=== PATIENT | female | born 1990 | race African-American/Black ===

== ENCOUNTER 2019-08-14 13:07 | Inpatient (IN) | payer OTHER ==
--- NOTE | 2019-08-14 13:38 | PDOC ---
Rapid Medical Evaluation Time Seen by Provider: 08/14/19 13:28 Medical Evaluation: 08/14/19 13:29 CC: AMS per family PE: RUE/RLE weakness. Unable to finish sentences ?aphasia. Fried Cake Maker strength 11/18 bl. CAMRONN- 08/13/19 @ 11am Orders: CVA w/u Patient will proceed to the ED for further evaluation. 08/14/19 13:38 Discharge Disposition - Diagnosis AMS (altered mental status) - Referrals - Patient Instructions - Post Discharge Activity
[2019-08-14 14:49] LABS: BASO % 0.4 % (0-2.0); EOS % 0.8 % (0-4.5); HEMATOCRIT 41.9 % (32.4-45.2); HEMOGLOBIN 13.9 GM/dL (10.7-15.3); LYMPH % 18.7 % (8-40); MCH 30.8 pg (25.7-33.7); MCHC 33.3 g/dl (32.0-36.0); MEAN CELL VOLUME 92.6 fl (80-96); MEAN PLT VOLUME 9.9 fl (7.5-11.1); MONO % 4.8 % (3.8-10.2); NEUT % 75.3 % (42.8-82.8); PLATELET COUNT 347 K/MM3 (134-434); RBC 4.52 M/mm3 (3.60-5.2); RDW 13.2 % (11.6-15.6); WHITE BLOOD COUNT 6.8 K/mm3 (4.0-10.0)
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
[2019-08-14 15:47] LABS: COCAINE, UR NEGATIVE ng/ml (CUTOFF=300); METHADONE, UR NEGATIVE ng/ml (CUTOFF=300); OPIATES, URI NEGATIVE ng/ml (CUTOFF=300); PHENCYCLIDINE,URINE NEGATIVE ng/ml (CUTOFF=25); URINE AMPHETAMINES NEGATIVE ng/ml (CUTOFF=500); URINE BARBITURATES NEGATIVE ng/ml (CUTOFF=200); URINE BENZODIAZEPINES NEGATIVE ng/ml (CUTOFF=200)
[2019-08-14 15:53] LABS: EPI CELLS 5.2 /HPF (0-5/HPF); HYALINE CASTS 15 /lpf (0-8); PH,URINE 5.5 (5.0-8.0); URINE APPEARANCE CLEAR; URINE BACTERIA 338.3 /hpf (NEGATIVE); URINE BILIRUBIN NEGATIVE (NEGATIVE); URINE COLOR YELLOW; URINE GLUCOSE (UA) NEGATIVE (NEGATIVE); URINE KETONE 4+ (NEGATIVE); URINE LEUK ESTERASE TRACE (NEGATIVE); URINE NITRITE NEGATIVE (NEGATIVE); URINE PROTEIN TRACE (NEGATIVE); URINE WBC 12 /hpf (0-5)
[2019-08-14] MEDS ORDERED: SODIUM CHLORIDE 0.9% 500 ML INFUS.BAG IV ONE (16:14)
--- NOTE | 2019-08-14 17:18 | PDOC ---
Documentation entered by Yessenia Hernández SCRIBE, acting as scribe for Rosenda France MD. Rosenda France MD: This documentation has been prepared by the Edgar lora Nirvannie, SCRIBE, under my direction and personally reviewed by me in its entirety. I confirm that the documentation accurately reflects all work, treatment, procedures, and medical decision making performed by me. Attending Attestation - Resident Resident Name: Nazia Cedeno - ED Attending Attestation I have performed the following: I have examined & evaluated the patient, The case was reviewed & discussed with the resident, I agree w/resident's findings & plan, Exceptions are as noted - HPI HPI: 08/14/19 16:37 HPI The patient is a 29YOF with no significant past medical history presenting with aphasia. While in the ED, patient can only communicate with a few words without the ability to communicate in full sentences. Her last known well was 11:30PM ( communicated with sister at that time). At approximately 9:50AM this morning she called her sister at which time she was unable to speak and word finding difficulties, repetitive. baseline normal, now repetitive and aphasic, difficulty communicating Allergies: None Past Medical History/PSH: None reported Social history: Lives with family. No tobacco, ETOH or drug use. Meds: none PMD: Dr. Carney 08/14/19 17:17 - Physicial Exam PE: 08/14/19 17:14 Agree with the resident's HPI and PE as documented in the electronic medical record. NAD, well appearing, EOMI, PERRL, nl conjunctiva, anicteric; neck supple. lungs clear, RRR, abdomen soft nontender. no rebound, guarding. No peripheral edema. normal color for ethnicity, WWP. Alert, aphasic, repetitive with "no." CN II-XII grossly intact. Strength prox and distally 5/5 throughout. no pronator drift b/l. Sensation grossly intact to light touch. LAMB x4. aphasic, repetitive - Critical Care Time Total Critical Care Time: 40 (CVA) Critical Care Statement: The care of this patient involved high complexity decision making to prevent further life threatening deterioration of the patient 's condition and/or to evaluate & treat vital organ system(s) failure or risk of failure. - Medical Decision Making 08/14/19 17:15 Vital Signs Temp Pulse Resp BP Pulse Ox 98.1 F 87 18 131/89 100 08/14/19 13:30 08/14/19 13:30 08/14/19 13:30 08/14/19 13:30 08/14/19 13:30 08/14/19 17:16 VS reviewed, wnl. Differential diagnosis includes CVA, aneurysm, dissection, intracranial bleed, anemia, electrolyte derangements, arrhythmia Patient is not a TPA candidate, last normal is 11 PM last night. out of tpa window. CT head preliminarily with focal low-attenuation density which could be encephalomalacia versus right occipital lobe infarction, rapid MRI sequence will be indicated. Neurology consultation with Dr. Mixon, will come to evaluate. admission to stroke tele, MRI, NPO, medical management 08/14/19 17:17 08/16/19 07:36 Heart Score/ECG Review #1 ECG reviewed & interpreted by me at: 17:55 General ECG Interpretation: Sinus Rhythm, Normal Rate, Normal Intervals Compared to previous ECG there are: Previous ECG unavail 08/14/19 18:17 EKG normal sinus rhythm 77 bpm, no interval abnormalities, narrow QRS, ST and T wave segments and morphology normal. Nonspecific T wave abnormalities inferior leads III/aVF
[2019-08-14 17:43] LABS: ALBUMIN 3.3 g/dl (3.4-5.0); BILIRUBIN,TOTAL 0.5 mg/dL (0.2-1); BLOOD UREA NITROGEN 7.3 mg/dL (7-18); CALCIUM 8.9 mg/dL (8.5-10.1); CREATININE 0.7 mg/dL (0.55-1.3); POTASSIUM 4.1 mmol/L (3.5-5.1); TOT PROT 7.1 g/dl (6.4-8.2)
[2019-08-14 18:19] LABS: URINE RBC 7.4 /hpf (0-4)
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
[2019-08-14] MEDS ORDERED: SODIUM CHLORIDE 1,000 ML IV SCH (19:00)
--- NOTE | 2019-08-14 19:01 | PN.NIHSS ---
NIH Stroke Scale - Last Known Well Date/Time & Onset Date Last Known Well: 08/13/19 - Initial Evaluation Level of consciousness: Alert Ask patient the month and their age: Both incorrect Ask patient to open & close eyes; make fist and let go: Obeys both correctly Best gaze (horizontal eye movement): Normal Visual field testing: No visual field loss Facial paresis (Show teeth/raise eyebrows/close eyes tight): Normal symmetrical movement Motor Function: Left Arm: Normal Motor Function: Right Arm: Normal (extends arm 90 (or 45) degrees for 10 seconds without drift Motor Function: Left Leg: Normal (extends leg 30 degrees for 5 seconds without drift) Motor Function: Right Leg: Normal (extends leg 30 degrees for 5 seconds without drift) Limb Ataxia: No ataxia Sensory(Use pinprick test arms,legs,trunk,face/side to side): Mild to moderate decrease in sensation (Forehead BL questoinable decrease in sensation; expressive aphasia) Best language (Describe picture, name items, read sentences): Severe aphasia Dysarthria (read several words): Near unintelligible or unable to speak Extinction and Inattention: No abnormality - Total Score NIH Stroke Scale Score: 7
--- NOTE | 2019-08-14 19:12 | PN ---
Teaching Attending Note Name of Resident: Adam Augustin ATTENDING PHYSICIAN STATEMENT I saw and evaluated the patient. I reviewed the resident's note and discussed the case with the resident. I agree with the resident's findings and plan as documented. SUBJECTIVE:29 y/o female PMH of POWERS/migraines (not formally diagnosed) since age 14 c/o inability to speak since AM today 14 Aug 2019. Sister (Stanford ) and mother (Julia [phone]) at bedside assisting in hx. Sincere reports that this morning her sister called her saying, "Sincere" and ,"I can't. " Prior to this there were several missed texts between sisters whom text each other daily. A friend FaceTimed the pt and verified expressive aphasia. Mother and sister arrived at pt's apartment in [place] (lives alone at the [place]). She at first ignored the door and on second attempt, she opened the door to family but was under sheets in bedroom naked. There was no evidence of robbery, break in, or assault. Pt was brought in by family. This has never happened before. 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 She has never used recreational drugs, etoh, or smoked. Sister notes decreased PO intake over last 2 days; no inciting reason such as weight loss. Her sleep status is unknown. There have been no recent known life stressors. No new foods/ supplements/herbs. Have seen PCP in last year. * OBJECTIVE O/E is comfortable , appears distant, and sad, sometimes tearful, alert , awake, sometimes answers, nad, * vss * neck supple, no jvd * cvs s1/s2/0 * chest ctab * abd benign * ext no c/c/e * neuro non focal * except not speaking, sometimes says yes or no, and responds to verbal commands, and follows all the directions, ASSESSMENT AND PLAN: ASSESSMENT/PLAN: 29 y/o female with PMH POWERS/migraines c/o asphasia for today # CVA vs migraine vs complex seizure - Possibly old CVA given CT / artifacts, - MRI - Carotid doppler - ECHO - ASA, statin - Lipid panel - TSH - HbA1c will get the speech evaluation, monitor, # DVT prophylaxis - Lovenox SQ #
--- NOTE | 2019-08-14 20:40 | CONSULT ---
Consult - text type - Consultation Consultation Note: NEUROLOGY CONSULTATION is greatly appreciated: Events reviewed and discussed with ER staff. Patient examined woth her mother and daughter at the bedside who provide history. 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 PMH of "Migraine" headaches occuring approx 1/month. On long lasing BCP's to "avoid having periods." Never smokes. Sister had a "normal conversation" with her yesterday morning. Pt called her sister around 9 AM and "didn't make sense." They arrived at her apt. to find her naked, blankets pulled up to her chin and frightened. They drove her to the ED. Her gait was "slow." Over the course of the day nurses describe her a variably alert and lethargic, speaking and mute. CT of head (reviewed): Normal study MRI of brain (reviewed): Normal study CBC, CMP, Tox screen: normal or negative. KEON: Neck supple. No head trauma. Cor Reg NEURO: Awake, alert. Follows complex 3-4 step commands quickly but simple commands, variably. Sparse, fluent speech alternates with Hesitant, labored speech. Tearful, sad but laughs at my jokes. CN XII-XII: Normal. Full oreilly. Normal tongue MACK's Motor: No drift or tremor. Normal strength, bulk, tone and reflexes. Toes downgoing Coord: No FTN dystaxia Sensory: Normal IMP: Probably normal neurological exam. The speech changes are most likely non-physiological and are not suggestive of stroke. Severe depression Suggest: Advance activities. Gentle encouragement. Halter/telemetry, echo, cardiology consultation Psychiatry consultation Can be discharged "when able to express her needs." Neuro and psyche f/u as out patient. Thank you very much, Lauri Mixon MD
[2019-08-14] MEDS ORDERED: ATORVASTATIN CA 80 MG TABLET (FP) ONE (21:05)
[2019-08-14] MEDS ORDERED: ASPIRIN 325 MG ENTERIC COATED TABLET (FP) ONE (21:05)
[2019-08-14] MEDS: ATORVASTATIN CA 80 MG TABLET (FP) PO SCH ×2 (21:18→22:11)
[2019-08-14] MEDS: ASPIRIN 325 MG ENTERIC COATED TABLET (FP) PO SCH (21:18)
[2019-08-14] MEDS: DEXTROSE 5%-0.45% SALINE 1,000 ML IV SCH (21:48)
[2019-08-14 23:54] LABS: INR 1.03 (0.83-1.09); PROTHROMBIN TIME (PATIENT) 12.2 SEC (9.7-13.0)
[2019-08-14 23:57] LABS: ACTIVATED PTT 26.8 SECONDS (25.2-36.5)
[2019-08-15 07:11] LABS: BASO % 0.5 % (0-2.0); EOS % 2.3 % (0-4.5); HEMATOCRIT 35.5 % (32.4-45.2); HEMOGLOBIN 11.8 GM/dL (10.7-15.3); LYMPH % 35.7 % (8-40); MCH 30.5 pg (25.7-33.7); MCHC 33.2 g/dl (32.0-36.0); MEAN CELL VOLUME 91.8 fl (80-96); MEAN PLT VOLUME 9.9 fl (7.5-11.1); MONO % 9.3 % (3.8-10.2); NEUT % 52.2 % (42.8-82.8); PLATELET COUNT 266 K/MM3 (134-434); RBC 3.87 M/mm3 (3.60-5.2); RDW 13.1 % (11.6-15.6); WHITE BLOOD COUNT 5.9 K/mm3 (4.0-10.0)
[2019-08-15 07:52] LABS: ALBUMIN 2.9 g/dl (3.4-5.0); BILIRUBIN,TOTAL 0.6 mg/dL (0.2-1); BLOOD UREA NITROGEN 6.8 mg/dL (7-18); CALCIUM 8.1 mg/dL (8.5-10.1); CREATININE 0.7 mg/dL (0.55-1.3); PHOSPHOROUS 3.1 mg/dL (2.5-4.9); POTASSIUM 3.7 mmol/L (3.5-5.1); TOT PROT 6.2 g/dl (6.4-8.2)
--- NOTE | 2019-08-15 09:00 | PN ---
Teaching Attending Note Name of Resident: Adam Augustin ATTENDING PHYSICIAN STATEMENT I saw and evaluated the patient. I reviewed the resident's note and discussed the case with the resident. I agree with the resident's findings and plan as documented. SUBJECTIVE: Patient is a 29 y/o female with PMHx of POWERS/migraines (not formally diagnosed) since age 14 c/o inability to speak since the morning of 14 Aug 2019. Sister ( Stanford [phone]) and mother (Julia [phone]) at bedside today. Sincere reported that this morning her sister called her saying, "Sincere" and , "I can't." Prior to this there were several missed texts between sisters whom text each other daily. A friend FaceTimed the pt and verified expressive aphasia. Mother and sister arrived at pt's apartment in [place] (lives alone at the [place]). She at first ignored the door and on second attempt opened the door as per family. This has never happened before. 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 She has never used recreational drugs, etoh, or smoked. Sister notes decreased PO intake over last 2 days. Vital Signs Temperature 99.2 F 08/15/19 05:00 Pulse Rate 75 08/15/19 05:00 Respiratory Rate 18 08/15/19 05:00 Blood Pressure 127/67 08/15/19 05:00 O2 Sat by Pulse Oximetry (%) 98 08/15/19 01:20 GENERAL: The patient is awake, alert, in no acute distress. HEAD: Normal with no signs of trauma. EYES: PERRL, extraocular movements intact, sclera anicteric, conjunctiva clear. ENT: Ears normal, oropharynx clear without exudates, moist mucous membranes. NECK: Trachea midline, full range of motion, supple. LUNGS: Breath sounds equal, clear to auscultation bilaterally, no wheezes, no crackles, no accessory muscle use. HEART: Regular rate and rhythm, S1, S2 without murmur, rub or gallop. ABDOMEN: Soft, nontender, nondistended, normoactive bowel sounds, no guarding, no rebound, no hepatosplenomegaly, no masses. EXTREMITIES: 2+ pulses, warm, well-perfused, no edema. NEUROLOGICAL: Cranial nerves II through XII grossly intact. gait not observed. Aphasic "uh huhh" to most questions. Agraphia to full sentences. Babinski NEG. Patellar reflexes 2+ BL, Bracihal reflex 2+ BL. PSYCH: appears sad, alert , awake, sometimes answers SKIN: Warm, dry, normal turgor, no rashes or lesions noted CBCD WBC 5.9 K/mm3 (4.0-10.0) 08/15/19 05:35 RBC 3.87 M/mm3 (3.60-5.2) 08/15/19 05:35 Hgb 11.8 GM/dL (10.7-15.3) 08/15/19 05:35 Hct 35.5 % (32.4-45.2) D 08/15/19 05:35 MCV 91.8 fl (80-96) 08/15/19 05:35 MCHC 33.2 g/dl (32.0-36.0) 08/15/19 05:35 RDW 13.1 % (11.6-15.6) 08/15/19 05:35 Plt Count 266 K/MM3 (134-434) D 08/15/19 05:35 MPV 9.9 fl (7.5-11.1) 08/15/19 05:35 CMP Sodium 141 mmol/L (136-145) 08/15/19 05:35 Potassium 3.7 mmol/L (3.5-5.1) 08/15/19 05:35 Chloride 108 mmol/L (98-107) H 08/15/19 05:35 Carbon Dioxide 25 mmol/L (21-32) 08/15/19 05:35 Anion Gap 9 MMOL/L (8-16) 08/15/19 05:35 BUN 6.8 mg/dL (7-18) L 08/15/19 05:35 Creatinine 0.7 mg/dL (0.55-1.3) 08/15/19 05:35 Random Glucose 83 mg/dL (74-106) 08/15/19 05:35 Calcium 8.1 mg/dL (8.5-10.1) L 08/15/19 05:35 Total Bilirubin 0.6 mg/dL (0.2-1) 08/15/19 05:35 AST 16 U/L (15-37) 08/15/19 05:35 ALT 10 U/L (13-61) L 08/15/19 05:35 Alkaline Phosphatase 37 U/L (45-117) L 08/15/19 05:35 Total Protein 6.2 g/dl (6.4-8.2) L 08/15/19 05:35 Albumin 2.9 g/dl (3.4-5.0) L 08/15/19 05:35 Current Medications Generic Name Dose Route Start Last Admin Trade Name Fani PRN Reason Stop Dose Admin Aspirin 325 mg 08/14/19 19:00 08/14/19 21:18 Ecotrin - PO 325 mg DAILY BRIA Administration Atorvastatin Calcium 80 mg 08/14/19 18:56 08/14/19 22:11 Lipitor - PO Not Given HS [facility] Enoxaparin Sodium 40 mg 08/15/19 10:00 Lovenox - SQ DAILY BRIA Dextrose/Sodium Chloride 1,000 mls @ 75 mls/hr 08/14/19 21:45 08/14/19 21:48 D5-1/2ns - IV 75 mls/hr ASDIR BRIA Administration Home Medications Medication Instructions Recorded Levonorgestrel-Ethin Estradiol 1 each PO DAILY 08/14/19 [[id number]-28 Tablet] CT of the head no contrasta; osteomalacia vs beam hardening artifact in the right occipital lobe. MRA of the brain without contrast reported: a large acute infarct involving the left temporal, frontal and parietal cortices. Acute infarct involving the left basal ganglia. A small amount of acute petechial blood is seen within the left putamen posteriorly and within the left parietal cortex. no evidence of large vessel stenosis or occlusion is identified. ASSESSMENT AND PLAN: Patient is a 29yo female with PMHx POWERS/migraines presented with asphasia on 2019, on MRA was found to have acute stroke # Acute CVA with unknown reason, echo ordered, holter monitor , on aspirin and lipitor started , lipid panel, swallowing evaluation, will get hem onc to evaluate the patient. TSH, HbA1c, follow, marivel peter speech evaluation, will continue to monitor risk factor : patient was on BCP further anticoagulation w/u per hem/onc DVT Px: lovenox
[2019-08-15] MEDS ORDERED: ENOXAPARIN NA (PORCINE) 40 MG/0.4 ML DISP.SYRIN SQ SCH (10:00)
--- NOTE | 2019-08-15 10:04 | PN ---
Progress Note (short form) - Note Progress Note: NEUROLGY PROGRESS: Events reviewed and discussed withDr. Augustin this AM. Review of the T2 Flair MRI images indeed confirms early ischemic changes in the M2 distribution of the left MCA territory affecting the Left posterior temporal and parietal regions. No edema. No confirmation of right parietal ischemia. MRA show NO evidence of MCA occlusion to suggest benefit of embolectomy. Carotid duplex is normal. In ER patient was out of the window for t-PA. Now on telemetry. Having echocardiogram now. Awaiting cardiology consultation (Arvind Romero), and hematolgy (Jackie Martin) for coagulopathy w/u EXAM: No bruits. Cor regular. In NAD (to suggest ongoing Headache), NEURO: Still tearful, frustrated. Follows rare simple commands, better with visual clues. Brief fluent phrases but, +Word substitution, gibberish phrases. Expressing herself with hand signs (ie; Telephone Mother). Full visual oreilly. No facial weakness. Gag-Normal No drift. Normal strength. Normal reflexes. Toes downgoing. Withdraws all fours and grimaces to gentle pinch all fours. IMP: Left Temporoparietal CVA with Global aphasia Most c/w Left MCA (M2) event but normal MR Angiogram. SUGGEST: Cardiology consult, Telemetry. Echocardiogram. May need JAVIER and bubble study to r/o PFO. Heme consultation for coagulopathy. Check Homocysteine, Protein C, Protein S. Anticardiolipin antibodies (circulating Lupus anticoagulant) D/C BCP's/hormone Rx ASA 325 qd SubQ heparin and SCD's for DVT prophylaxis. Mobilize OO Bed to chair. Speech therapy eval and Rx. Will call mother/sister to discuss. Thank you very much, Lauri Mixon MD
[2019-08-15 11:14] LABS: SICKLE CELL SCREEN NEGATIVE (NEGATIVE)
--- NOTE | 2019-08-15 11:29 | CONSULT ---
Consultation: CONSULT SERVICE: Hematology/Oncology Resident HISTORY OF PRESENT ILLNESS: 29yo F with h/o migraines who presented originally with expressive aphasia. During her workup CT was unequivocal, however MRI/MRA showed acute L infarct of parietal, temporal and cortical regions. We were asked to evaluate this patient due to her young age and ischemic stroke. Pt today remains with expressive aphasia, however it has slightly improved. She is able to understand commands. Pt's mother and sister are at bedside to help with history. No issues with bleeding or clotting in pt's history or family history. Only stroke was with maternal grandmother, however this was noted to be at age 80+ years. Pt conveys that she feels frustrated and is tearful during discussions. 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 REVIEW OF SYSTEMS: As per [facility] PHYSICAL EXAMINATION Vital Signs - 24 hr 08/14/19 08/14/19 08/14/19 13:30 18:45 23:27 Temperature 98.1 F 98.6 F Pulse Rate 87 Pulse Rate [ 89 84 Left Radial] Respiratory 18 19 18 Rate Blood Pressure 131/89 Blood Pressure 133/68 137/72 [Right Arm] O2 Sat by Pulse 100 99 97 Oximetry (%) 08/15/19 08/15/19 08/15/19 01:20 03:00 05:00 Temperature 98.5 F 99.2 F Pulse Rate 78 67 75 Pulse Rate [ Left Radial] Respiratory 18 18 18 Rate Blood Pressure 141/80 127/67 Blood Pressure [Right Arm] O2 Sat by Pulse 98 Oximetry (%) 08/15/19 09:00 Temperature 98.8 F Pulse Rate 68 Pulse Rate [ Left Radial] Respiratory 18 Rate Blood Pressure 134/84 Blood Pressure [Right Arm] O2 Sat by Pulse Oximetry (%) GENERAL: NAD, Awake, alert, responds to commands, able to use appropriate words at times HEENT: NC/AT, EOMI, JAMAL, sclera anicteric, MMM NECK: No JVD LUNGS: CTA bilaterally. No wheezes, and no crackles. No accessory muscle use. HEART: RRR, normal S1 and S2 without murmur ABDOMEN: Soft, nontender, not distended, normoactive bowel sounds, EXTREMITIES: 2+ distal pulses, warm, well-perfused. No calf tenderness. No peripheral edema. NEUROLOGICAL: EOMI, JAMAL, responds to commands, will have difficulty with word -finding, no dysarthria, strength grossly 5/5 b/l, sensation intact grossly PSYCHIATRIC: Cooperative. Poor eye contact. Depressed mood, tearful SKIN: Warm, dry, no rashes or lesions noted. Laboratory Results - last 24 hr 08/14/19 08/14/19 08/14/19 14:22 14:22 14:45 WBC 6.8 RBC 4.52 Hgb 13.9 Hct 41.9 MCV 92.6 MCH 30.8 MCHC 33.3 RDW 13.2 Plt Count 347 MPV 9.9 Absolute Neuts (auto) 5.1 Neutrophils % 75.3 Lymphocytes % 18.7 Monocytes % 4.8 Eosinophils % 0.8 Basophils % 0.4 Nucleated RBC % 0 Sickle Cell Screen PT with INR INR PTT (Actin FS) Sodium Cancelled Potassium Cancelled Chloride Cancelled Carbon Dioxide Cancelled Anion Gap Cancelled BUN Cancelled Creatinine Cancelled Est GFR (CKD-EPI)AfAm Cancelled Est GFR (CKD-EPI)NonAf Cancelled Random Glucose Cancelled Hemoglobin A1c % Calcium Cancelled Phosphorus Magnesium Total Bilirubin Cancelled AST Cancelled ALT Cancelled Alkaline Phosphatase Cancelled C-Reactive Protein Total Protein Cancelled Albumin Cancelled Triglycerides Cholesterol Total LDL Cholesterol HDL Cholesterol Vitamin B12 TSH Cancelled Urine Color Urine Appearance Urine pH Ur Specific [place] Urine Protein Urine Glucose (UA) Urine Ketones Urine Blood Urine Nitrite Urine Bilirubin Urine Urobilinogen Ur Leukocyte Esterase Urine WBC (Auto) Urine RBC (Auto) Urine Casts (Auto) U Epithel Cells (Auto) Urine Bacteria (Auto) Urine HCG, Qual Opiates Screen Negative Methadone Screen Negative Barbiturate Screen Negative Phencyclidine Screen Negative Ur Amphetamines Screen Negative MDMA (Ecstasy) Screen Negative Benzodiazepines Screen Negative Cocaine Screen Negative U Marijuana (THC) Screen Negative 08/14/19 08/14/19 08/14/19 14:45 14:45 16:24 WBC RBC Hgb Hct MCV MCH MCHC RDW Plt Count MPV Absolute Neuts (auto) Neutrophils % Lymphocytes % Monocytes % Eosinophils % Basophils % Nucleated RBC % Sickle Cell Screen PT with INR INR PTT (Actin FS) Sodium 140 Potassium 4.1 Chloride 106 Carbon Dioxide 26 Anion Gap 7 L BUN 7.3 Creatinine 0.7 Est GFR (CKD-EPI)AfAm 134.75 Est GFR (CKD-EPI)NonAf 116.26 Random Glucose 79 Hemoglobin A1c % Calcium 8.9 Phosphorus Magnesium Total Bilirubin 0.5 AST 16 ALT 12 L Alkaline Phosphatase 40 L C-Reactive Protein Total Protein 7.1 Albumin 3.3 L Triglycerides Cholesterol Total LDL Cholesterol HDL Cholesterol Vitamin B12 TSH Urine Color Yellow Urine Appearance Clear Urine pH 5.5 Ur Specific [place] 1.033 Urine Protein Trace Urine Glucose (UA) Negative Urine Ketones 4+ H Urine Blood Negative Urine Nitrite Negative Urine Bilirubin Negative Urine Urobilinogen 1.0 Ur Leukocyte Esterase Trace Urine WBC (Auto) 12 Urine RBC (Auto) 7.4 Urine Casts (Auto) 15 U Epithel Cells (Auto) 5.2 Urine Bacteria (Auto) 338.3 Urine HCG, Qual Negative Opiates Screen Methadone Screen Barbiturate Screen Phencyclidine Screen Ur Amphetamines Screen MDMA (Ecstasy) Screen Benzodiazepines Screen Cocaine Screen U Marijuana (THC) Screen 08/14/19 08/15/19 08/15/19 23:10 05:35 05:35 WBC RBC Hgb Hct MCV MCH MCHC RDW Plt Count MPV Absolute Neuts (auto) Neutrophils % Lymphocytes % Monocytes % Eosinophils % Basophils % Nucleated RBC % Sickle Cell Screen PT with INR 12.20 INR 1.03 PTT (Actin FS) 26.8 Sodium 141 Potassium 3.7 Chloride 108 H Carbon Dioxide 25 Anion Gap 9 BUN 6.8 L Creatinine 0.7 Est GFR (CKD-EPI)AfAm 134.75 Est GFR (CKD-EPI)NonAf 116.26 Random Glucose 83 Hemoglobin A1c % 4.6 Calcium 8.1 L Phosphorus 3.1 Magnesium 2.0 Total Bilirubin 0.6 AST 16 ALT 10 L Alkaline Phosphatase 37 L C-Reactive Protein Total Protein 6.2 L Albumin 2.9 L Triglycerides 89 Cholesterol 135 Total LDL Cholesterol 75 HDL Cholesterol 44 Vitamin B12 314 TSH 1.11 Urine Color Urine Appearance Urine pH Ur Specific [place] Urine Protein Urine Glucose (UA) Urine Ketones Urine Blood Urine Nitrite Urine Bilirubin Urine Urobilinogen Ur Leukocyte Esterase Urine WBC (Auto) Urine RBC (Auto) Urine Casts (Auto) U Epithel Cells (Auto) Urine Bacteria (Auto) Urine HCG, Qual Opiates Screen Methadone Screen Barbiturate Screen Phencyclidine Screen Ur Amphetamines Screen MDMA (Ecstasy) Screen Benzodiazepines Screen Cocaine Screen U Marijuana (THC) Screen 08/15/19 08/15/19 08/15/19 05:35 10:03 10:03 WBC 5.9 RBC 3.87 Hgb 11.8 Hct 35.5 D MCV 91.8 MCH 30.5 MCHC 33.2 RDW 13.1 Plt Count 266 D MPV 9.9 Absolute Neuts (auto) 3.1 Neutrophils % 52.2 D Lymphocytes % 35.7 D Monocytes % 9.3 D Eosinophils % 2.3 D Basophils % 0.5 Nucleated RBC % 0 Sickle Cell Screen Negative PT with INR INR PTT (Actin FS) Sodium Potassium Chloride Carbon Dioxide Anion Gap BUN Creatinine Est GFR (CKD-EPI)AfAm Est GFR (CKD-EPI)NonAf Random Glucose Hemoglobin A1c % Calcium Phosphorus Magnesium Total Bilirubin AST ALT Alkaline Phosphatase C-Reactive Protein 1.5 H Total Protein Albumin Triglycerides Cholesterol Total LDL Cholesterol HDL Cholesterol Vitamin B12 TSH Urine Color Urine Appearance Urine pH Ur Specific [place] Urine Protein Urine Glucose (UA) Urine Ketones Urine Blood Urine Nitrite Urine Bilirubin Urine Urobilinogen Ur Leukocyte Esterase Urine WBC (Auto) Urine RBC (Auto) Urine Casts (Auto) U Epithel Cells (Auto) Urine Bacteria (Auto) Urine HCG, Qual Opiates Screen Methadone Screen Barbiturate Screen Phencyclidine Screen Ur Amphetamines Screen MDMA (Ecstasy) Screen Benzodiazepines Screen Cocaine Screen U Marijuana (THC) Screen Active Medications Generic Name Dose Route Start Last Admin Trade Name Freq PRN Reason Stop Dose Admin Aspirin 325 mg 08/14/19 19:00 08/14/19 21:18 Ecotrin - PO 325 mg DAILY [facility] Administration Atorvastatin Calcium 80 mg 08/14/19 18:56 08/14/19 22:11 Lipitor - PO Not Given HS [facility] Dextrose/Sodium Chloride 1,000 mls @ 75 mls/hr 08/14/19 21:45 08/14/19 21:48 D5-1/2ns - IV 75 mls/hr ASDIR [facility] Administration ASSESSMENT/PLAN: L extensive CVA --Will send thrombophilia workup: Sickle Cell screen Hgb Electrophoresis SILVIANO RF ESR CRP --No family issues with bleeding or clotting in patient or family --Monitor for paroxysmal Afib --Agree with ASA therapy --Rest per neurology and primary teams Case discussed with Dr. Gemini Spencer, DO - IM PGY-3 Visit type - Emergency Visit Emergency Visit: Yes ED Registration Date: 08/14/19 Care time: The patient presented to the Emergency Department on the above date and was hospitalized for further evaluation of their emergent condition. - New Patient This patient is new to me today: Yes Date on this admission: 08/15/19 - Critical Care Critical Care patient: No ATTENDING PHYSICIAN STATEMENT I saw and evaluated the patient. I reviewed the resident's note and discussed the case with the resident. I agree with the resident's findings and plan as documented. SUBJECTIVE: OBJECTIVE: ASSESSMENT AND PLAN:
--- NOTE | 2019-08-15 11:35 | CONSULT ---
Admitting History and Physical - Primary Care Physician PCP: Vianney Vidales - Admission History of Present Illness: Per EMR-Patient is a 29 y/o female with PMHx of POWERS/migraines (not formally diagnosed) since age 14 c/o inability to speak since AM today 14 Aug 2019. Sister (Stanford [phone]) and mother (Julia [phone]) at bedside assisting in hx. Sincere reports that this morning her sister called her saying , "Sincere" and ,"I can't." Prior to this there were several missed texts between sisters whom text each other daily. A friend FaceTimed the pt and verified expressive aphasia. Mother and sister arrived at pt's apartment in [place] (lives alone at the [place]). She at first ignored the door and on second attempt, she opened the door to family but was under sheets in bedroom naked. There was no evidence of robbery, break in, or assault. Pt was brought in by family. This has never happened before. 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 She has never used recreational drugs, etoh, or smoked. Sister notes decreased PO intake over last 2 days; no inciting reason such as weight loss. Her sleep status is unknown. There have been no recent known life stressors. No new foods/ supplements/herbs. Have seen PCP in last year. CT of the head no contrast; osteomalacia vs beam hardening artifact in the right occipital lobe. Selected Entries 08/14/19 08/14/19 08/14/19 13:30 18:45 23:27 Temperature 98.1 F 98.6 F Blood Pressure 131/89 Blood Pressure 133/68 137/72 [Right Arm] 08/15/19 08/15/19 08/15/19: 05:00 09:00 Temperature 98.5 F 99.2 F 98.8 F Blood Pressure 141/80 127/67 134/84 Blood Pressure [Right Arm] Laboratory Tests 08/14/19 08/15/19 14:22 05:35 WBC 6.8 5.9 Toxicology screen (-) History Source: Family Member (mother, sister), Medical Record Limitations to Obtaining History: Clinical Condition - Past Medical History ...: No - Smoking History Smoking history: Never smoked - Alcohol/Substance Use Hx Alcohol Use: No History - Admission Reason For Visit: CEREBRAL VASCULAR ACCIDENT - Diagnostics X-ray: Report Reviewed CT Scan: Report Reviewed (CT of the head no contrasta; osteomalacia vs beam hardening artifact in the right occipital lobe.) MRI: Report Reviewed (MRA of the brain without contrast reported: a large acute infarct involving the left temporal, frontal and parietal cortices. Acute infarct involving the left basal ganglia. A small amount of acute petechial blood is seen within the left putamen posteriorly and within the left parietal cortex. no evidence of large vessel stenosis or occlusion is identified.) Other: Report Reviewed - General Mental Status: Awake and Alert Attention: Intact Ability to Follow Directions: Fair (Yes/No confusion. Oral/limb apraxia, unable to follow commands but follows whole body (take a breath), shows comprehension in converstion. Unable to point to communication board, written word but circles /makes checks near appropriate responses.) Head/Neck Control: Good - Hearing Hearing: Normal Speech Evaluation - Communication Primary Language: FRISIAN Communication: Yes: Aphasia Oral Expression Ability: Yes: Severe Impairment - Speech Production Apraxia: Yes Able to Make Needs Known: Yes: Moderately Impaired, Severely Impaired Intelligibility: Yes: WNL - Speech Characteristics Voice Loudness: Normal Voice Pitch: Yes: Normal Voice Phonatory-based Quality: Yes: Normal Speech Pattern: Impaired Nasal Resonance: Normal Articulation: Yes: Precise - Language/Auditory Comprehension Observation: Able to respond to yes/no queries: No, Yes/No Confusion: Yes ( inconsistent/unreliable), Comprehends Conversational Speech: Yes (seems to comprehend more than she demonstrates), Benefits from Slow Speech: Yes, Benefits from Repetiton: Yes, Benefits from Increased Volume of Speech: No - Language/Verbal Expression Aphasia: Yes: Anomia, Impaired Repetition, Paraphrasic Errors, Neologisms, Apraxia Able to Respond to Simple Queries: Yes: Severely Impaired Able to Communicate Wants and Needs: Yes: Severely Impaired Functional Communication Status: Yes: Severely Impaired Aware of Errors: No Attempts to Correct Errors: No Use of Gestures: Yes Written Expression: Perseverates writing her name or neologisms with poor function of written communication. Pt uses her phone functionally, finding appropriate contacts, types her name. Reading Comprehension: Pt can check off simple words requested eg bathroom. Simple word communication board constructed - Swallow Evaluation/Bedside Assessment Current Nutritional Intake: NPO Oral Secretions: Yes: WFL Dentition: Yes: Adequate Facial Symmetry at Rest: Symmetrical Facial Symmetry on Retraction: Symmetrical Facial Movement: Controlled Sensation: Normal Against Resistance Opening: Normal Against Resistance Closing: Normal Pucker Lips: Normal Smile: Normal Lingual Movement: Symmetric, Apraxic, Unable to Perform Lingual Speed of Movement: Normal Lingual Movement Strgth Against Opposition: Normal Lingual Movement Characteristics: Normal Velopharyngeal Movement: Normal Laryngeal Elevation: WFL Laryngeal Movement: Able to Palpate Rate of Intake: WFL Bolus Size: WFL Labial Seal: WFL Chewing: WFL Oral Prep Time: WFL A-P Transit: WFL Pocketing: None Timing of Swallow: WFL Coughing/Throat Clear: No Change in Voice: No Recommendations - Speech Evaluation, Impression/Plan Impression: Initially pt was non-verbal/non-vocal/unable to follow commands with severe apraxia. With extensive evaluation/tx, pt progressed to singing happy birthday, initiating sentences occasionally ("Can I tell you something?") but with frequent neologisms and tangential responses, not communicating intent. Auditory comprehension likely impaired but w/u adversely affected by apraxia. Comprehension seems somewhat functional on simple comprehension level, crying appropriately, following functional requests eg wipe your eyes, try the cracker. No Dysarthria/Dysphagia. Family educated on Aphasia and ways to maximize communication. - Disposition [facility] to: [facility] (Pt will benefit from intensive daily speech tx.) - Dysphagia Impressions/Plan Swallowing Skills: WF Dysphagia Impressions: No Impairment *Silent aspiration: cannot be R/O at bedside Dysphagia Treatment Plan: OOB for meals, OOB for 1 h. after meals Recommendations: Other (Please send menu for self selection.) - Recommendations Diet Consistency: Regular Medication Administration: Whole with water Liquids: Thin Liquids
[2019-08-15 11:37] LABS: ERYTHROCYTE SEDIMENTATION RATE 8 mm/hr (0-20)
[2019-08-15] MEDS: ASPIRIN 325 MG ENTERIC COATED TABLET (FP) PO SCH (11:58)
--- NOTE | 2019-08-15 12:07 | ECHO ---
Name: ANAJudCRYSTALEllen, JUSTICE Exam:Adult Echocardiogram Study Date: 08/15/2019 10:06 AM Age: 29 yrs Height: 67 in Weight: 175 lb BSA: 1.9 m2 MMode/2D Measurements & Calculations IVSd: 0.98 cm Ao root diam: 2.4 cm LVIDd: 3.2 cm LA dimension: 3.8 cm LVIDs: 2.4 cm ACS: 2.0 cm LVPWd: 1.1 cm EDV(Teich): 42.0 ml LVOT diam: 2.0 cm ESV(Teich): 19.1 ml RV S Felipe: 14.0 cm/sec Doppler Measurements & Calculations MV E max felipe: 69.1 cm/sec Ao V2 max: 122.3 cm/sec MV A max felipe: 58.2 cm/sec Ao max P.0 mmHg MV E/A: 1.2 Ao V2 mean: 89.2 cm/sec MV dec time: 0.20 sec Ao mean P.6 mmHg Ao V2 VTI: 26.9 cm SANDOVAL(I,D): 1.8 cm2 SANDOVAL(V,D): 1.7 cm2 LV V1 max P.9 mmHg MR max feilpe: 412.9 cm/sec LV V1 mean P.98 mmHg MR max P.5 mmHg LV V1 max: 68.1 cm/sec LV V1 mean: 46.1 cm/sec LV V1 VTI: 15.9 cm SV(LVOT): 48.9 ml TR max felipe: 240.3 cm/sec TR max P.6 mmHg PA V2 max: 54.5 cm/sec Med Peak E' Felipe: 8.9 cm/sec PA max P.2 mmHg Med E/e': 7.8 Lat Peak E' Felipe: 5.9 cm/sec Lat E/e': 11.7 Procedure A complete two-dimensional transthoracic echocardiogram was performed (2D, M-mode, Doppler and color flow Doppler). Left Ventricle The left ventricular size, thickness and function are normal. The left ventricular ejection fraction is normal. Ejection Fraction = 60-65%. The left ventricular wall motion is normal. Right Ventricle The right ventricle is normal in size and function. Atria Normal left and right atrial size and function. Mitral Valve There is trace mitral regurgitation. Tricuspid Valve There is trace tricuspid regurgitation. Right ventricular systolic pressure is normal. Aortic Valve No hemodynamically significant valvular aortic stenosis. No aortic regurgitation is present. Pulmonic Valve There is no pulmonic valvular regurgitation. Great Vessels The aortic root is normal size. Pericardium/Pleura There is no pericardial effusion. Interpretation Summary The left ventricular size, thickness and function are normal The right ventricle is normal in size and function. There is trace mitral regurgitation. There is trace tricuspid regurgitation. MD Jelani Jennings 08/15/2019 12:07 PM
--- NOTE | 2019-08-15 12:39 | EKG ---
Test Reason : Blood Pressure : / mmHG Vent. Rate : 077 BPM Atrial Rate : 077 BPM P-R Int : 160 ms QRS Dur : 076 ms QT Int : 374 ms P-R-T Axes : 047 004 010 degrees QTc Int : 423 ms NORMAL SINUS RHYTHM NORMAL ECG NO PREVIOUS ECGS AVAILABLE Confirmed by ANISH MCPHERSON MD ([id number]) on 08/15/2019 12:38:46 PM Referred By: Confirmed By:ANISH MCPHERSON MD
--- NOTE | 2019-08-15 13:03 | CON.CARD ---
Cardiology Consult (text) - Consultation Consultation Note: cc: right side weak, problems speaking hpi: 29 f no sig pmhx here with right sided weakness and trouble speaking. Hx from charts, pt unable to provide details, aphasic, appears comfortable. Found to have acute cva on mri here. pmh: per hpi psh: none social: no tob fam: unknown ros: unable to obtain 2/2 aphasia meds: Home Medications Medication Instructions Recorded Levonorgestrel-Ethin Estradiol 1 each PO DAILY 08/14/19 [Lillow-28 Tablet] pe: Vital Signs Period Temp Pulse Resp BP Sys/Simpson Pulse Ox Last 24 Hr 98.1 F-99.2 F 67-89 18-19 127-141/ 97-100 nad no jvd rrr s1s2 nomrg cta bl nl eff awake alert, not speaking abd nt nd pos bs no jaundice diaphoresis pos dp pt no carotid bruits no le e/c/c Laboratory Last Values WBC 5.9 K/mm3 (4.0-10.0) 08/15/19 05:35 RBC 3.87 M/mm3 (3.60-5.2) 08/15/19 05:35 Hgb 11.8 GM/dL (10.7-15.3) 08/15/19 05:35 Hct 35.5 % (32.4-45.2) D 08/15/19 05:35 MCV 91.8 fl (80-96) 08/15/19 05:35 MCH 30.5 pg (25.7-33.7) 08/15/19 05:35 MCHC 33.2 g/dl (32.0-36.0) 08/15/19 05:35 RDW 13.1 % (11.6-15.6) 08/15/19 05:35 Plt Count 266 K/MM3 (134-434) D 08/15/19 05:35 MPV 9.9 fl (7.5-11.1) 08/15/19 05:35 Absolute Neuts (auto) 3.1 K/mm3 (1.5-8.0) 08/15/19 05:35 Neutrophils % 52.2 % (42.8-82.8) D 08/15/19 05:35 Lymphocytes % 35.7 % (8-40) D 08/15/19 05:35 Monocytes % 9.3 % (3.8-10.2) D 08/15/19 05:35 Eosinophils % 2.3 % (0-4.5) D 08/15/19 05:35 Basophils % 0.5 % (0-2.0) 08/15/19 05:35 Nucleated RBC % 0 % (0-0) 08/15/19 05:35 ESR 8 mm/hr (0-20) 08/15/19 10:03 Sickle Cell Screen Negative (NEGATIVE) 08/15/19 10:03 PT with INR 12.20 SEC (9.7-13.0) 08/14/19 23:10 INR 1.03 (0.83-1.09) 08/14/19 23:10 PTT (Actin FS) 26.8 SECONDS (25.2-36.5) 08/14/19 23:10 Sodium 141 mmol/L (136-145) 08/15/19 05:35 Potassium 3.7 mmol/L (3.5-5.1) 08/15/19 05:35 Chloride 108 mmol/L (98-107) H 08/15/19 05:35 Carbon Dioxide 25 mmol/L (21-32) 08/15/19 05:35 Anion Gap 9 MMOL/L (8-16) 08/15/19 05:35 BUN 6.8 mg/dL (7-18) L 08/15/19 05:35 Creatinine 0.7 mg/dL (0.55-1.3) 08/15/19 05:35 Est GFR (CKD-EPI)AfAm 134.75 08/15/19 05:35 Est GFR (CKD-EPI)NonAf 116.26 08/15/19 05:35 Random Glucose 83 mg/dL (74-106) 08/15/19 05:35 Hemoglobin A1c % 4.6 % (4.2-6.3) 08/15/19 05:35 Calcium 8.1 mg/dL (8.5-10.1) L 08/15/19 05:35 Phosphorus 3.1 mg/dL (2.5-4.9) 08/15/19 05:35 Magnesium 2.0 mg/dL (1.8-2.4) 08/15/19 05:35 Total Bilirubin 0.6 mg/dL (0.2-1) 08/15/19 05:35 AST 16 U/L (15-37) 08/15/19 05:35 ALT 10 U/L (13-61) L 08/15/19 05:35 Alkaline Phosphatase 37 U/L (45-117) L 08/15/19 05:35 C-Reactive Protein 1.5 MG/DL (0.00-0.3) H 08/15/19 10:03 Total Protein 6.2 g/dl (6.4-8.2) L 08/15/19 05:35 Albumin 2.9 g/dl (3.4-5.0) L 08/15/19 05:35 Triglycerides 89 mg/dL (0-150) 08/15/19 05:35 Cholesterol 135 mg/dL (50-200) 08/15/19 05:35 Total LDL Cholesterol 75 mg/dL (5-100) 08/15/19 05:35 HDL Cholesterol 44 mg/dL (40-60) 08/15/19 05:35 Vitamin B12 314 pg/ml (193-986) 08/15/19 05:35 TSH 1.11 uIU/ml (0.358-3.74) 08/15/19 05:35 Urine Color Yellow 08/14/19 14:45 Urine Appearance Clear 08/14/19 14:45 Urine pH 5.5 (5.0-8.0) 08/14/19 14:45 Ur Specific [place] 1.033 (1.010-1.035) 08/14/19 14:45 Urine Protein Trace (NEGATIVE) 08/14/19 14:45 Urine Glucose (UA) Negative (NEGATIVE) 08/14/19 14:45 Urine Ketones 4+ (NEGATIVE) H 08/14/19 14:45 Urine Blood Negative (NEGATIVE) 08/14/19 14:45 Urine Nitrite Negative (NEGATIVE) 08/14/19 14:45 Urine Bilirubin Negative (NEGATIVE) 08/14/19 14:45 Urine Urobilinogen 1.0 mg/dL (0.2-1.0) 08/14/19 14:45 Ur Leukocyte Esterase Trace (NEGATIVE) 08/14/19 14:45 Urine WBC (Auto) 12 /hpf (0-5) 08/14/19 14:45 Urine RBC (Auto) 7.4 /hpf (0-4) 08/14/19 14:45 Urine Casts (Auto) 15 /lpf (0-8) 08/14/19 14:45 U Epithel Cells (Auto) 5.2 /HPF (0-5/HPF) 08/14/19 14:45 Urine Bacteria (Auto) 338.3 /hpf (NEGATIVE) 08/14/19 14:45 Urine HCG, Qual Negative 08/14/19 14:45 Opiates Screen Negative ng/ml (IZFGHS=871) 08/14/19 14:45 Methadone Screen Negative ng/ml (WCEXFJ=233) 08/14/19 14:45 Barbiturate Screen Negative ng/ml (VSPCSE=380) 08/14/19 14:45 Phencyclidine Screen Negative ng/ml (CUTOFF=25) 08/14/19 14:45 Ur Amphetamines Screen Negative ng/ml (KNDVWO=646) 08/14/19 14:45 MDMA (Ecstasy) Screen Negative ng/ml (FDYTDO=433) 08/14/19 14:45 Benzodiazepines Screen Negative ng/ml (WZKCXB=738) 08/14/19 14:45 Cocaine Screen Negative ng/ml (JZFKGO=426) 08/14/19 14:45 U Marijuana (THC) Screen Negative ng/ml (CUTOFF=50) 08/14/19 14:45 Rheumatoid Factor < 10.0 IU/mL (0-15) 08/15/19 10:03 ecg: sr nl intervals no ischemic changes tele: sr carotids: wnl a/p: 29 f no sig pmhx here with acute cva. acute cva: -tele benign so far, continue for now -carotids unremarkable -echo pending, pt will likely need JAVIER as well given unclear etiology of cva -heme and neuro following as well
[2019-08-15 14:25] VITALS: BMI 27.3
--- NOTE | 2019-08-15 17:20 | PN ---
Physical Exam: SUBJECTIVE: Patient seen and examined at bedside. There were no acute events overnight. This AM her presentation is consistent with presentation last night. OBJECTIVE: Vital Signs Temp Pulse Resp BP Pulse Ox 99.0 F 78 20 138/91 98 08/15/19 17:00 08/15/19 17:00 08/15/19 17:00 08/15/19 17:00 08/15/19 09:00 GENERAL: AOx3, in no acute distress HEAD: NCAT EYES: CAMELIA, EOMI, conjunctiva clear. ENT: Ears normal, nares patent, oropharynx clear without exudates. Moist mucous membranes. NECK: Normal range of motion, supple without lymphadenopathy, JVD, or masses. LUNGS: CTAB. No wheezes, and no crackles. No accessory muscle use. HEART: RRR s1 s2 ABDOMEN: Soft, BS present in all 4 quadrants, non-distended, no JVD, MUSCULOSKELETAL: No bony deformities or tenderness. No CVA tenderness. UPPER EXTREMITIES: 2+ pulses, warm, well-perfused. No cyanosis. No clubbing. No peripheral edema. LOWER EXTREMITIES: 2+ pulses, warm, well-perfused. No calf tenderness. No peripheral edema. NEUROLOGICAL: Cranial nerves II-XII intact. Aphasic "uh huhh" to most questions. Agraphia to full sentences. Babinski NEG. Patellar reflexes 2+ BL, Bracihal reflex 2+ BL. Sensation intact except possibly BL on forehead (unclear if she is offering positive response) Strength 5/5 in upper and lower extremeties, distally and proximally, in flexors and extensors. No dymetria or dysdiadokinesia. Gait not appreciated. PSYCHIATRIC: Cooperative. Good eye contact. Appropriate mood and affect. SKIN: Warm, dry, normal turgor, no rashes or lesions noted, normal capillary refill. Laboratory Results - last 24 hr 08/14/19 08/14/19 08/14/19 14:45 16:24 23:10 WBC RBC Hgb Hct MCV MCH MCHC RDW Plt Count MPV Absolute Neuts (auto) Neutrophils % Lymphocytes % Monocytes % Eosinophils % Basophils % Nucleated RBC % ESR Sickle Cell Screen PT with INR 12.20 INR 1.03 PTT (Actin FS) 26.8 Sodium 140 Potassium 4.1 Chloride 106 Carbon Dioxide 26 Anion Gap 7 L BUN 7.3 Creatinine 0.7 Est GFR (CKD-EPI)AfAm 134.75 Est GFR (CKD-EPI)NonAf 116.26 Random Glucose 79 Hemoglobin A1c % Calcium 8.9 Phosphorus Magnesium Total Bilirubin 0.5 AST 16 ALT 12 L Alkaline Phosphatase 40 L C-Reactive Protein Total Protein 7.1 Albumin 3.3 L Triglycerides Cholesterol Total LDL Cholesterol HDL Cholesterol Vitamin B12 TSH Urine RBC (Auto) 7.4 Rheumatoid Factor 08/15/19 08/15/19 08/15/19 05:35 05:35 05:35 WBC 5.9 RBC 3.87 Hgb 11.8 Hct 35.5 D MCV 91.8 MCH 30.5 MCHC 33.2 RDW 13.1 Plt Count 266 D MPV 9.9 Absolute Neuts (auto) 3.1 Neutrophils % 52.2 D Lymphocytes % 35.7 D Monocytes % 9.3 D Eosinophils % 2.3 D Basophils % 0.5 Nucleated RBC % 0 ESR Sickle Cell Screen PT with INR INR PTT (Actin FS) Sodium 141 Potassium 3.7 Chloride 108 H Carbon Dioxide 25 Anion Gap 9 BUN 6.8 L Creatinine 0.7 Est GFR (CKD-EPI)AfAm 134.75 Est GFR (CKD-EPI)NonAf 116.26 Random Glucose 83 Hemoglobin A1c % 4.6 Calcium 8.1 L Phosphorus 3.1 Magnesium 2.0 Total Bilirubin 0.6 AST 16 ALT 10 L Alkaline Phosphatase 37 L C-Reactive Protein Total Protein 6.2 L Albumin 2.9 L Triglycerides 89 Cholesterol 135 Total LDL Cholesterol 75 HDL Cholesterol 44 Vitamin B12 314 TSH 1.11 Urine RBC (Auto) Rheumatoid Factor 08/15/19 08/15/19 10:03 10:03 WBC RBC Hgb Hct MCV MCH MCHC RDW Plt Count MPV Absolute Neuts (auto) Neutrophils % Lymphocytes % Monocytes % Eosinophils % Basophils % Nucleated RBC % ESR 8 Sickle Cell Screen Negative PT with INR INR PTT (Actin FS) Sodium Potassium Chloride Carbon Dioxide Anion Gap BUN Creatinine Est GFR (CKD-EPI)AfAm Est GFR (CKD-EPI)NonAf Random Glucose Hemoglobin A1c % Calcium Phosphorus Magnesium Total Bilirubin AST ALT Alkaline Phosphatase C-Reactive Protein 1.5 H Total Protein Albumin Triglycerides Cholesterol Total LDL Cholesterol HDL Cholesterol Vitamin B12 TSH Urine RBC (Auto) Rheumatoid Factor < 10.0 Active Medications Aspirin (Ecotrin -) 325 mg PO DAILY [facility]RIA Last Admin: 08/15/19 11:58 Dose: 325 mg Atorvastatin Calcium (Lipitor -) 80 mg PO HS [facility] Last Admin: 08/15/19 23:21 Dose: 80 mg Dextrose/Sodium Chloride (D5-1/2ns -) 1,000 mls @ 75 mls/hr IV ASDIR [facility] Last Admin: 08/15/19 23:21 Dose: Not Given ASSESSMENT/PLAN: 29 y/o female with PMH POWERS/migraines c/o asphasia for today # CVA vs migraine vs complex seizure - MRI: Large acute LEFT infarct in temporal, frontal, and parietal cortices. Acute petechial bleed w/in LEFT putamen and LEFT parietal cortex. MRA NEG. - Pt was out of tpa window on presentation - Carotid doppler NEG - ECHO pending - ASA, statin - Neuro consulted: JAVIER, bubble study to r/o PFO. Homocysteine, Protein C, Protein S. Anticardiolipin antibodies (circulating Lupus anticoagulant). D/C BCP 's/hormone Rx. - Heme/onc consulted -thrombophilia workup: Sickle Cell screen, Hgb Electrophoresis, SILVIANO, RF, ESR, CRP - Speech and swallow assessment: Regular diet. Will need speech rehabilitation # F/E/N - NS - Cont. to monitor - Regular diet # DVT prophylaxis - Lovenox SQ # Disposition - Cont. cardiac monitoring Adam Augustin MD Visit type - Emergency Visit Emergency Visit: No - New Patient This patient is new to me today: No - Critical Care Critical Care patient: No ATTENDING PHYSICIAN STATEMENT I saw and evaluated the patient. I reviewed the resident's note and discussed the case with the resident. I agree with the resident's findings and plan as documented. SUBJECTIVE: OBJECTIVE: ASSESSMENT AND PLAN:
[2019-08-15] MEDS: DEXTROSE 5%-0.45% SALINE 1,000 ML IV SCH (23:21)
[2019-08-15] MEDS: ATORVASTATIN CA 80 MG TABLET (FP) PO SCH (23:21)
[2019-08-16 07:36] LABS: HEMATOCRIT 37.2 % (32.4-45.2); HEMOGLOBIN 12.5 GM/dL (10.7-15.3); MCHC 33.6 g/dl (32.0-36.0); MEAN CELL VOLUME 92.3 fl (80-96); MEAN PLT VOLUME 9.7 fl (7.5-11.1); PLATELET COUNT 275 K/MM3 (134-434); RBC 4.03 M/mm3 (3.60-5.2); WHITE BLOOD COUNT 5.6 K/mm3 (4.0-10.0)
[2019-08-16 08:01] LABS: ALBUMIN 3.2 g/dl (3.4-5.0); BILIRUBIN,TOTAL 0.6 mg/dL (0.2-1); BLOOD UREA NITROGEN 4.7 mg/dL (7-18); CALCIUM 8.9 mg/dL (8.5-10.1); CREATININE 0.7 mg/dL (0.55-1.3); POTASSIUM 4.1 mmol/L (3.5-5.1)
--- NOTE | 2019-08-16 09:23 | PN ---
Teaching Attending Note Name of Resident: Adam Augustin ATTENDING PHYSICIAN STATEMENT I saw and evaluated the patient. I reviewed the resident's note and discussed the case with the resident. I agree with the resident's findings and plan as documented. SUBJECTIVE: Patient is able to follow some commands, unable to smile, stated just that she viviana't. Otherwise speech is improving. Vital Signs Temperature 98.8 F 08/16/19 03:16 Pulse Rate 88 08/16/19 07:00 Respiratory Rate 18 08/16/19 07:00 Blood Pressure 129/98 08/16/19 07:00 O2 Sat by Pulse Oximetry (%) 98 08/15/19 09:00 GENERAL: The patient is awake, alert, in no acute distress. HEAD: Normal with no signs of trauma. EYES: PERRL, extraocular movements intact, sclera anicteric, conjunctiva clear. ENT: Ears normal, oropharynx clear without exudates, moist mucous membranes. NECK: Trachea midline, full range of motion, supple. LUNGS: Breath sounds equal, clear to auscultation bilaterally, no wheezes, no crackles, no accessory muscle use. HEART: Regular rate and rhythm, S1, S2 without murmur, rub or gallop. ABDOMEN: Soft,NT,ND, normoactive bowel sounds, no guarding, no rebound, no hepatosplenomegaly, no masses. EXTREMITIES: 2+ pulses, warm, well-perfused, no edema. NEUROLOGICAL: Cranial nerves II through XII grossly intact. gait not observed. better speech today. improving SKIN: Warm, dry, normal turgor, no rashes or lesions noted CBCD WBC 5.6 K/mm3 (4.0-10.0) 08/16/19 05:56 RBC 4.03 M/mm3 (3.60-5.2) 08/16/19 05:56 Hgb 12.5 GM/dL (10.7-15.3) 08/16/19 05:56 Hct 37.2 % (32.4-45.2) 08/16/19 05:56 MCV 92.3 fl (80-96) 08/16/19 05:56 MCHC 33.6 g/dl (32.0-36.0) 08/16/19 05:56 RDW 13.0 % (11.6-15.6) 08/16/19 05:56 Plt Count 275 K/MM3 (134-434) 08/16/19 05:56 MPV 9.7 fl (7.5-11.1) 08/16/19 05:56 CMP Sodium 140 mmol/L (136-145) 08/16/19 05:56 Potassium 4.1 mmol/L (3.5-5.1) 08/16/19 05:56 Chloride 108 mmol/L (98-107) H 08/16/19 05:56 Carbon Dioxide 26 mmol/L (21-32) 08/16/19 05:56 Anion Gap 6 MMOL/L (8-16) L 08/16/19 05:56 BUN 4.7 mg/dL (7-18) L 08/16/19 05:56 Creatinine 0.7 mg/dL (0.55-1.3) 08/16/19 05:56 Random Glucose 83 mg/dL (74-106) 08/16/19 05:56 Calcium 8.9 mg/dL (8.5-10.1) 08/16/19 05:56 Total Bilirubin 0.6 mg/dL (0.2-1) 08/16/19 05:56 AST 20 U/L (15-37) 08/16/19 05:56 ALT 12 U/L (13-61) L 08/16/19 05:56 Alkaline Phosphatase 39 U/L (45-117) L 08/16/19 05:56 Total Protein 7.0 g/dl (6.4-8.2) 08/16/19 05:56 Albumin 3.2 g/dl (3.4-5.0) L 08/16/19 05:56 Home Medications Medication Instructions Recorded Levonorgestrel-Ethin Estradiol 1 each PO DAILY 08/14/19 [Lillow-28 Tablet] Current Medications Generic Name Dose Route Start Last Admin Trade Name Juvencioq PRN Reason Stop Dose Admin Aspirin 325 mg 08/14/19 19:00 08/15/19 11:58 Ecotrin - PO 325 mg DAILY BRIA Administration Atorvastatin Calcium 80 mg 08/14/19 18:56 08/15/19 23:21 Lipitor - PO 80 mg HS BRIA Administration Dextrose/Sodium Chloride 1,000 mls @ 75 mls/hr 08/14/19 21:45 08/15/19 23:21 D5-1/2ns - IV Not Given ASDIR [facility] Laboratory Tests 08/15/19 08/15/19 08/15/19 05:35 10:03 10:03 ESR Sickle Cell Screen Hemoglobin A Pending Hemoglobin A2 Pending Hemoglobin C Pending Hemoglobin S Pending Variant Hemoglobin Pending Hemoglobin Interpret Pending Maternal Rh Pending Hemoglobin Solubility Pending C-Reactive Protein 1.5 H Triglycerides 89 Cholesterol 135 Total LDL Cholesterol 75 HDL Cholesterol 44 Vitamin B12 314 Homocysteine Pending Rheumatoid Factor < 10.0 SILVIANO Screen 08/15/19 08/15/19 10:03 10:03 ESR 8 Sickle Cell Screen Negative Hemoglobin A Hemoglobin A2 Hemoglobin C Hemoglobin S Variant Hemoglobin Hemoglobin Interpret Maternal Rh Hemoglobin Solubility C-Reactive Protein Triglycerides Cholesterol Total LDL Cholesterol HDL Cholesterol Vitamin B12 Homocysteine Rheumatoid Factor SILVIANO Screen Pending CT of the head no contrasta; osteomalacia vs beam hardening artifact in the right occipital lobe. MRA of the brain without contrast reported: a large acute infarct involving the left temporal, frontal and parietal cortices. Acute infarct involving the left basal ganglia. A small amount of acute petechial blood is seen within the left putamen posteriorly and within the left parietal cortex. no evidence of large vessel stenosis or occlusion is identified. ASSESSMENT AND PLAN: Patient is a 29yo female with PMHx POWERS/migraines presented with asphasia on 2019, on MRA was found to have acute stroke # Acute CVA with unknown reason, echo ordered, holter monitor , on aspirin and lipitor started , lipid panel, swallowing evaluation, will get hem onc to evaluate the patient. detail stroke w/u is pending, as per cardio and neuro patient will be transferred to [facility] for further stroke w/u , will continue to monitor risk factor : patient was on BCP further anticoagulation w/u per hem/onc and [facility] DVT Px: lovenox
--- NOTE | 2019-08-16 09:40 | PN ---
Progress Note, Physician Chief Complaint: having trouble speaking. TELE: sinus - Current Medication List Current Medications: Active Medications Aspirin (Ecotrin -) 325 mg PO DAILY [facility] Last Admin: 08/15/19 11:58 Dose: 325 mg Atorvastatin Calcium (Lipitor -) 80 mg PO HS [facility] Last Admin: 08/15/19 23:21 Dose: 80 mg Dextrose/Sodium Chloride (D5-1/2ns -) 1,000 mls @ 75 mls/hr IV ASDIR [facility] Last Admin: 08/15/19 23:21 Dose: Not Given - Objective Vital Signs: Vital Signs Temperature 98.8 F 08/16/19 03:16 Pulse Rate 88 08/16/19 07:00 Respiratory Rate 18 08/16/19 07:00 Blood Pressure 129/98 08/16/19 07:00 O2 Sat by Pulse Oximetry (%) 98 08/15/19 09:00 Constitutional: Yes: No Distress Cardiovascular: Yes: Regular Rate and Rhythm Respiratory: Yes: CTA Bilaterally Gastrointestinal: Yes: Soft Edema: No Neurological: Yes: Alert, Oriented Labs: CBC, BMP 08/16/19 05:56 08/16/19 05:56 INR, PTT INR 1.03 (0.83-1.09) 08/14/19 23:10 - ....Imaging EKG: Image Reviewed Assessment/Plan tele: sr carotids: wnl a/p: 29 f no sig. pmhx here with acute cva. acute cva: -tele benign so far, continue for now -carotids unremarkable -echo wnk, pt will likely need JAVIER as well given unclear etiology of cva -heme and neuro following as well -Case d/w Dr. Mixon. Option of transferring to tertiary center for completion of work up will be offered to patient and family -Several calls placed to mother Julia brendan RIVERA ) to discuss above , message left
[2019-08-16] MEDS: ASPIRIN 325 MG ENTERIC COATED TABLET (FP) PO SCH (11:23)
--- NOTE | 2019-08-16 12:30 | PN ---
Progress Note, [employer] - Note Progress Note: Fluent Aphasia- Conduction Aphasia with word finding difficulty and repetition deficits vs Wernicke's- difficult to assess due to Apraxia, which is improving. Speaking more, lack of content words, perseverative. Social speech much improved but propositional language lacks content. Yes/No confused. Some comprehension deficits. Not aware of her language errors and becomes frustrated with the listener's lack of understanding. No dysarthria. Tolerating diet well. Excellent candidate for intensive Aphasia tx.
--- NOTE | 2019-08-16 12:44 | PN ---
Teaching Attending Note Name of Resident: Sergei Spencer ATTENDING PHYSICIAN STATEMENT I saw and evaluated the patient. I reviewed the resident's note and discussed the case with the resident. I agree with the resident's findings and plan as documented. ASSESSMENT AND PLAN: 29 y/o female with h/o migraines on control pills , presenting with expressive aphasia Review of the T2 Flair MRI images indeed confirms early ischemic changes in the M2 distribution of the left MCA territory affecting the Left posterior temporal and parietal regions. No edema. No confirmation of right parietal ischemia. Carotid duplex is normal. In ER patient was out of the window for t-PA. Now on telemetry Left Temporoparietal CVA with Global aphasia c/w Left MCA event but normal MR Angiogram MRI--left cerebral infarcts. Petechial blood in left basal ganglia and left parietal cortex suspect thrombophilia due to control pills? check thrombophilia w/u -- antiphospholipid panel/ ATIII/Protein c/S/ factor V leeiden and Prothrombingene [id number] mutations/JAK2/SILVIANO/RF/Hemoglobin electrophoresis On aspirin will follow
--- NOTE | 2019-08-16 13:51 | PN ---
Physical Exam: SUBJECTIVE: Patient seen and examined at bedside. There were no acute events overnight. This am she is accompanied by friend Ghazala, whom has brought the pt breakfast as requested by text message. I reviewed the texts and they are regcognizable statements but still within the line of presentation where 1-2 words are sensible. She presently responds with, "uh huh" or "nuh uh" for positive or negative replies. She also has 1-2 words replies when friend speaks. OBJECTIVE: Vital Signs Temp Pulse Resp BP Pulse Ox 98.2 F 72 18 139/80 98 08/17/19 06:00 08/17/19 06:00 08/17/19 06:00 08/17/19 06:00 08/16/19 21:00 GENERAL: AOx3, in no acute distress HEAD: NCAT EYES: CAMELIA, EOMI, conjunctiva clear. ENT: Ears normal, nares patent, oropharynx clear without exudates. Moist mucous membranes. NECK: Normal range of motion, supple without lymphadenopathy, JVD, or masses. LUNGS: CTAB. No wheezes, and no crackles. No accessory muscle use. HEART: RRR s1 s2 ABDOMEN: Soft, BS present in all 4 quadrants, non-distended, no JVD, MUSCULOSKELETAL: No bony deformities or tenderness. No CVA tenderness. UPPER EXTREMITIES: 2+ pulses, warm, well-perfused. No cyanosis. No clubbing. No peripheral edema. LOWER EXTREMITIES: 2+ pulses, warm, well-perfused. No calf tenderness. No peripheral edema. NEUROLOGICAL: Cranial nerves II-XII intact. Aphasic "uh huhh" to most questions. Agraphia to full sentences. Babinski NEG. Patellar reflexes 2+ BL, Bracihal reflex 2+ BL. Sensation intact except possibly BL on forehead (unclear if she is offering positive response) Strength 5/5 in upper and lower extremeties, distally and proximally, in flexors and extensors. No dymetria or dysdiadokinesia. Gait not appreciated. PSYCHIATRIC: Cooperative. Good eye contact. Appropriate mood and affect. SKIN: Warm, dry, normal turgor, no rashes or lesions noted, normal capillary refill. Laboratory Results - last 24 hr 08/16/19 08/16/19 05:56 05:56 WBC 5.6 RBC 4.03 Hgb 12.5 Hct 37.2 MCV 92.3 MCH 31.0 MCHC 33.6 RDW 13.0 Plt Count 275 MPV 9.7 Sodium 140 Potassium 4.1 Chloride 108 H Carbon Dioxide 26 Anion Gap 6 L BUN 4.7 L Creatinine 0.7 Est GFR (CKD-EPI)AfAm 134.75 Est GFR (CKD-EPI)NonAf 116.26 Random Glucose 83 Calcium 8.9 Total Bilirubin 0.6 AST 20 ALT 12 L Alkaline Phosphatase 39 L Total Protein 7.0 Albumin 3.2 L Active Medications Aspirin (Ecotrin -) 325 mg PO DAILY [facility] Last Admin: 08/16/19 11:23 Dose: 325 mg Atorvastatin Calcium (Lipitor -) 80 mg PO HS [facility] Last Admin: 08/16/19 21:17 Dose: 80 mg ASSESSMENT/PLAN: 29 y/o female with PMH POWERS/migraines c/o asphasia for today and acute infarct on imaging. # CVA vs migraine vs complex seizure - MRI: Large acute LEFT infarct in temporal, frontal, and parietal cortices. Acute petechial bleed w/in LEFT putamen and LEFT parietal cortex. MRA NEG. - Pt was out of tpa window on presentation - Pt for JAVIER and bubble study today - Possible consideration for transfer to tertiary care/stroke center for complete w/u, will discuss with family # F/E/N - PO - Cont. to monitor - Regular diet # DVT prophylaxis - Lovenox SQ # Disposition - Cont. cardiac monitoring Adam Augustin MD Visit type - Emergency Visit Emergency Visit: No - New Patient This patient is new to me today: No - Critical Care Critical Care patient: No ATTENDING PHYSICIAN STATEMENT I saw and evaluated the patient. I reviewed the resident's note and discussed the case with the resident. I agree with the resident's findings and plan as documented. SUBJECTIVE: OBJECTIVE: ASSESSMENT AND PLAN:
--- NOTE | 2019-08-16 13:58 | HOL ---
Hook-up date: 2019-08-15 10:48:00 Duration: 23:53:00 Test Indications: R/O ARRYTHMIAS Medications: [id number] QRS complexes 10 Ventricular ectopics which represent <1 % of total QRS comp. 2 Supraventricular ectopics which represent <1 % of total QRS comp. * Paced QRS complexs which represent % of total QRS comp. * % of Time Classified as Noise VENTRICULAR ECTOPY 10 Isolated 0 Bigeminal Cycles 0 Couplets 0 Runs 0 Beats in Runs * Beats LONGEST at * BPM at :: -- * Beats FASTEST at * BPM at :: -- SUPRAVENTRICULAR ECTOPY 2 Isolated 0 Couplets 0 Runs 0 Beats in Runs * Beats LONGEST at * BPM at :: -- * Beats FASTEST at * BPM at :: -- HEART RATES 56 MIN at 01:59:09 2019-08-16 81 AVG 126 MAX at 11:56:01 2019-08-15 LONGEST RR 1.112 secs at 11:51:53 2019-08-15 The underlying rhythm was normal sinus with periods of sinus tachycardia. There were rare, single APCs with aberrancy vs fusion beats. No sustained arrhythmias. No evidence of atrial fibrillation. No significant pauses. No diary entries. Confirmed by MILES ADAMS MD ([id number]) on 08/16/2019 1:58:06 PM Referred By: ATTILA ARELLANO DR Overread By: MILES ADAMS MD
--- NOTE | 2019-08-16 14:09 | PN ---
Progress Note (short form) - Note Progress Note: Spoke with pt's mother, Julia Melendez, regarding consideration of transfer to stroke center/tertiary care center. Pt presently aphaisic. Risks/benefits of transfer explained. Mother in agreement with transfer to [facility]. Spoek with Min of [facility] transfer, whom reports that Dr. Monterroso (fellow) is presenting the case for consideration. Will provide complete hand off of transfer to covering team.
--- NOTE | 2019-08-16 21:04 | PN ---
Progress Note (short form) - Note Progress Note: NEUROLOGY PROGRESS: Events reviewed and discussed with Dr. Easley. Cardiology agrees with the need for Transesophageal echo but proposes scheduled out patient study next Monday Coagulopathy workup put in place by Dr. King. Transfer to [facility] stroke unit discussed with mother and put in place this afternoon but Patient strongly rejects the idea in favor of out patient work up and speech therapy. Modther agrees. Exam: Comprehension and sppech output are improving. Pt. follows 2 and some 3 step commands and has longer fluent phrases. Full oreilly Min lower right facial droop. Normal tongue mov'ts and gag No drift. Normal strength, tone, bulk and reflexes. Toes downgoing. No FTN dystaxia Normal sensation. Romberg neg Gait- normal IMP: S/P left temporoparietal CVA wit improving aphasia. PLAN: Discussed with Patient, mother, cardiology. Pt IS competent to participate in her medical decision making. D/C control pills/ hormonal Rx. Stable for D/C on ASA 325 mg qd Mother guarantees Pt will come for Scheduled JAVIER as per Dr. Jennings. Outpatient heme f/u with Dr. Joiner in her office in about 2 weeks to discuss results of coag. evaluation. Out patient speech therapy at [facility] 2/week x 8 weeks then neuro f/u in my office. Thank you very much, Lauri Mixon MD
[2019-08-16] MEDS: ATORVASTATIN CA 80 MG TABLET (FP) PO SCH (21:17)
[2019-08-16] MEDS: DEXTROSE 5%-0.45% SALINE 1,000 ML IV SCH (21:18)
[2019-08-17 06:46] VITALS: TEMP 98.2
--- NOTE | 2019-08-17 09:08 | PN ---
Progress Note, Physician - Current Medication List Current Medications: Active Medications Aspirin (Ecotrin -) 325 mg PO DAILY [facility] Last Admin: 08/16/19 11:23 Dose: 325 mg Atorvastatin Calcium (Lipitor -) 80 mg PO HS [facility] Last Admin: 08/16/19 21:17 Dose: 80 mg Dextrose/Sodium Chloride (D5-1/2ns -) 1,000 mls @ 75 mls/hr IV ASDIR [facility] Last Admin: 08/16/19 21:18 Dose: Not Given - Objective Vital Signs: Vital Signs Temperature 98.2 F 08/17/19 06:00 Pulse Rate 72 08/17/19 06:00 Respiratory Rate 18 08/17/19 06:00 Blood Pressure 139/80 08/17/19 06:00 O2 Sat by Pulse Oximetry (%) 98 08/16/19 21:00 Labs: CBC, BMP 08/16/19 05:56 08/16/19 05:56 INR, PTT INR 1.03 (0.83-1.09) 08/14/19 23:10 Assessment/Plan tele: sr carotids: wnl echo 08/05: nl LV/RV, no valve pathology a/p: 29 f no sig. pmhx here with acute cva. acute cva: -tele benign, carotids and echo unremarkable -pt will need JAVIER to r/o cardioembolic source substrate -dr meyers notes reviewed; clarified with dr garcia his rec.s on this case. we do not rec outpatient JAVIER in the unlikely event that pt suffers a repeat embolic event prior to definitive dx and institution of appropriate therapy (e.g. if requires AC). -pt has declined transfer to stroke neurology service at [place] and JAVIER with specialty shop tailor apprentice. hence will schedule JAVIER here prior to discharge. -heme w/u for hypercoagulable state underway -bp stable -cont aspirin, hi intensity statin as doing
[2019-08-17] MEDS: ASPIRIN 325 MG ENTERIC COATED TABLET (FP) PO SCH (10:31)
[2019-08-17 11:18] VITALS: BP 142/89; PULSE 81
--- NOTE | 2019-08-17 14:15 | PN ---
Progress Note (short form) - Note Progress Note: case d/w'd dr garcia and dr meyers. pt highly likely with cardioembolic source of her stroke, possibly PFO. JAVIER was not able to be completed yesterday, pt declined transfer to stroke neurology service at [place] (ins[place] [facility] given the increased, finite risk of recurrent stroke, we do not advise that she leave the hospital without definitive dx. if she has PFO, treatment would most likely be aspirin, although AC would be reasonable if it is a large/"stretch" PFO with large amount of spontaneous R-to- L shunt. alternatively, sending her home on AC without a definite indication is not advisable either. d/w'd dr banegas: pt is neurologically stable and VSs stable. she is on asa and statin which will continue. I am trying to arrange for JAVIER here on Monday, though scheduling cannot be completed until endoscopy unit team returns Monday AM
--- NOTE | 2019-08-17 15:17 | DS ---
Physical Exam: SUBJECTIVE: Patient seen and examined Patient's speech is improving. wants to go home. Patient was explained the risks of going home against medical advise. Patient was advised to stay since arranged for her to have JAVIER for this Monday. explained the risks of signing out AMA, recurrent stroke, collapse, as well. OBJECTIVE: Vital Signs Temperature 98.2 F 08/17/19 10:00 Pulse Rate 81 08/17/19 10:00 Respiratory Rate 18 08/17/19 10:00 Blood Pressure 142/89 08/17/19 10:00 O2 Sat by Pulse Oximetry (%) 97 08/17/19 09:00 GENERAL: The patient is awake, alert, and fully oriented, in no acute distress. HEAD: Normal with no signs of trauma. EYES: PERRL, extraocular movements intact, sclera anicteric, conjunctiva clear. ENT: Ears normal, nares patent, oropharynx clear without exudates, moist mucous membranes. NECK: Trachea midline, full range of motion, supple. LUNGS: Breath sounds equal, clear to auscultation bilaterally, no wheezes, no crackles, no accessory muscle use. HEART: Regular rate and rhythm, S1, S2 without murmur, rub or gallop. ABDOMEN: Soft, nontender, nondistended, normoactive bowel sounds, no guarding, no rebound, no hepatosplenomegaly, no masses. EXTREMITIES: 2+ pulses, warm, well-perfused, no edema. NEUROLOGICAL: Cranial nerves II through XII grossly intact. speech is improved , gait is stable . PSYCH: Normal mood, normal affect. SKIN: Warm, dry, normal turgor, no rashes or lesions noted. CBCD WBC 5.6 K/mm3 (4.0-10.0) 08/16/19 05:56 RBC 4.03 M/mm3 (3.60-5.2) 08/16/19 05:56 Hgb 12.5 GM/dL (10.7-15.3) 08/16/19 05:56 Hct 37.2 % (32.4-45.2) 08/16/19 05:56 MCV 92.3 fl (80-96) 08/16/19 05:56 MCHC 33.6 g/dl (32.0-36.0) 08/16/19 05:56 RDW 13.0 % (11.6-15.6) 08/16/19 05:56 Plt Count 275 K/MM3 (134-434) 08/16/19 05:56 MPV 9.7 fl (7.5-11.1) 08/16/19 05:56 CMP Sodium 140 mmol/L (136-145) 08/16/19 05:56 Potassium 4.1 mmol/L (3.5-5.1) 08/16/19 05:56 Chloride 108 mmol/L (98-107) H 08/16/19 05:56 Carbon Dioxide 26 mmol/L (21-32) 08/16/19 05:56 Anion Gap 6 MMOL/L (8-16) L 08/16/19 05:56 BUN 4.7 mg/dL (7-18) L 08/16/19 05:56 Creatinine 0.7 mg/dL (0.55-1.3) 08/16/19 05:56 Random Glucose 83 mg/dL (74-106) 08/16/19 05:56 Calcium 8.9 mg/dL (8.5-10.1) 08/16/19 05:56 Total Bilirubin 0.6 mg/dL (0.2-1) 08/16/19 05:56 AST 20 U/L (15-37) 08/16/19 05:56 ALT 12 U/L (13-61) L 08/16/19 05:56 Alkaline Phosphatase 39 U/L (45-117) L 08/16/19 05:56 Total Protein 7.0 g/dl (6.4-8.2) 08/16/19 05:56 Albumin 3.2 g/dl (3.4-5.0) L 08/16/19 05:56 LABS Laboratory Results - last 24 hr 08/15/19 08/15/19 10:03 10:03 Homocysteine 9.0 SILVIANO Screen Negative Current Medications Generic Name Dose Route Start Last Admin Trade Name Fani PRN Reason Stop Dose Admin Aspirin 325 mg 08/14/19 19:00 08/17/19 10:31 Ecotrin - PO 325 mg DAILY BRIA Administration Atorvastatin Calcium 80 mg 08/14/19 18:56 08/16/19 21:17 Lipitor - PO 80 mg HS BRIA Administration Dextrose/Sodium Chloride 1,000 mls @ 75 mls/hr 08/14/19 21:45 08/16/19 21:18 D5-1/2ns - IV Not Given ASDIR [facility] Home Medications Medication Instructions Recorded Aspirin [Ecotrin] 325 mg PO DAILY #30 tablet. 08/17/19 Atorvastatin Ca [Lipitor] 80 mg PO HS #30 tab 08/17/19 CT of the head no contrast : osteomalacia vs beam hardening artifact in the right occipital lobe. MRA of the brain without contrast reported: a large acute infarct involving the left temporal, frontal and parietal cortices. Acute infarct involving the left basal ganglia. A small amount of acute petechial blood is seen within the left putamen posteriorly and within the left parietal cortex. no evidence of large vessel stenosis or occlusion is identified. HOSPITAL COURSE: Date of Admission:08/14/19 Date of Discharge: 08/17/19 signed against medical advice. risks explained Patient is a 29yo female with PMHx POWERS/migraines presented with aphasia on 2019, on MRA was found to have acute stroke # Acute CVA with mild expressive aphasia ; unknown reason so far, echo result reviewed is negative, given prescription for aspirin and lipitor, and Advised to stop taking BCP since BCP can be the cause of her stroke. Patient was advised to stay till Monday to have JAVIER done for Monday for possible patient having cardioembolic source for possible having PFO , R-L shunt. discussed with cardio Dr. Romeo, as per Dr Romeo as well, patient needs to have JAVIER, which is being arranged for this Monday. Also was explained that she might be needing AC according to The JAVIER result, but patient continued to refuse to stay in the hospital till Monday morning. Advised that signing against medical advise: possibility of recurrent CVA just on being on aspirin since we do not have a definite cause of a stroke. recommended her to follow up with secretary to board of commissioners, pump house operator, manager drug safety, and neurologist. she has mild expressive aphasia however she was able to express herself clearly with full sentences. she verbalized understanding but stated that she wanted to accept that risk and leave the hospital, and agreed to take the prescribed meds aspirin and Lipitor and to schedule outpt JAVIER ANALI. discussed with as well. Patient was advised to follow up with secretary to board of commissioners Dr Martin for further AC/ stroke w/u risk factor : patient was on BCP JAVIER was not able to be completed yesterday, pt declined transfer to stroke neurology service at [place] (since insurance only covers [facility] d/w'd dr Mixon: patient is stable neurologically as per dr Mixon but needs to complete the w/u . patient understands that she needs to complete the work up. pt is neurologically stable and VSs stable. she is on asa and statin which will continue. Dr. romeo is trying to arrange JAVIER for her for Monday, though scheduling cannot be completed until endoscopy unit team returns Monday AM Minutes to complete discharge: 45 Discharge Summary Problems reviewed: Yes Reason For Visit: CEREBRAL VASCULAR ACCIDENT Current Active Problems CVA (cerebral vascular accident) (Acute) Condition: Stable - Instructions Diet, Activity, Other Instructions: Low fat cholesterol diet, continue taking Aspirin 325mg daily Lipitor 80mg orally daily please follow up with neurologist within a week period Please follow up with a pump house operator; is a [facility]. Doctor please make an appointment to schedule transesophageal echo. to r/o any pathology for causing a stroke. please call [facility] for outpatient speech therapy STOP TAKING THE CONTROL PILLS Referrals: yulissa Bourne [Other] - 2 Weeks jacinda Abraham [Other] - 1 Week Kailyn Kirby MD [Other] - 1 Week Brendan Duran MD [Staff Physician] - 1 Week (this is the resident's clinic. You can follow up with ) Aime Correa MD [Staff Physician] - 08/19/19 (This is a [place] physician ; pump house operator, call for an appointment for Transesophagel Echo ) Lauri Mixon MD [Staff Physician] - 1 Week Sukhjinder Romeo MD [Staff Physician] - 08/19/19 (Please call the [facility] for Transesophageal echo.) Lala Carney MD [Primary Care Provider] - 1 Week Garrett Martin MD [Staff Physician] - (Further hematological work up for stroke needed. follow up the result as well.) Disposition: AGAINST MEDICAL ADVICE - Home Medications Comprehensive Discharge Medication List: Ambulatory Orders Aspirin [Ecotrin] 325 mg PO DAILY #30 tablet. 08/17/19 Atorvastatin Ca [Lipitor] 80 mg PO HS #30 tab 08/17/19 This patient is new to me today: No Emergency Visit: Yes ED Registration Date: 08/14/19 Care time: The patient presented to the Emergency Department on the above date and was hospitalized for further evaluation of their emergent condition. Critical Care patient: No - Discharge Referral Referred to [id number] No
[2019-08-19 08:06] LABS: HGB SOLUBILITY Negative (Negative); Hgb C 0 % (0.0); Hgb F 0 % (0.0-2.0); Hgb S 0 % (0.0)
[2019-08-20 11:12] LABS: DRVVT - 33.7 sec (0.0-47.0)
== END 2019-08-17 16:00 | disposition left against medical advice (07) | DRG 44 ==
LOC: JER 13:07 → J4W 17:52
PROVIDERS: ADMIT Internal Medicine; ATTEND Internal Medicine
DX: I61.1 Nontraumatic intracerebral hemorrhage in hemisphere, cortical (principal); I63.9 Cerebral infarction, unspecified; F32.9 Major depressive disorder, single episode, unspecified; G43.909 Migraine, unspecified, not intractable, without status migrainosus; R47.01 Aphasia; R29.707 NIHSS score 7; D68.59 Other primary thrombophilia; Q21.1 Atrial septal defect
CPT/HCPCS: 36415; 70450-TC; 70544-TC; 70551-TC; 80053; 80061; 80307; 81003; 82607; 83021; 83036; 83090; 83721; 83735; 84100; 84443; 84703; 85025; 85027; 85610; 85613; 85651; 85660; 85730; 85732; 86038; 86140; 86431; 87086; 93005; 93010; 93225; 93226; 93306-TC; 93880-TC; 97116-GP; 97161-GP; 99284-25; J7030